=== PATIENT | female | born 1960 | race Caucasian/White ===

== ENCOUNTER 2017-04-04 22:35 | Emergency (ER) | payer BC, OTHER ==
[2017-04-04] MEDS ORDERED: Fluconazole 100 MG Tab PO ONE (22:57)
[2017-04-04] MEDS ORDERED: Ciprofloxacin 500 MG Tab PO ONE (22:59)
--- NOTE | 2017-04-04 23:07 | EDM.PDOC ---
ED HPI GENERAL MEDICAL PROBLEM - General Chief Complaint: Genitourinary Problem Stated Complaint: POSS BLADDER INFECTION Time Seen by Provider: 04/04/17 22:35 Source of Information: Reports: Patient, Family History Limitations: Reports: No Limitations - History of Present Illness INITIAL COMMENTS - FREE TEXT/NARRATIVE: 56 years old w f come with her SO to the ed due painful and frequent urinations. No trauma. Pt had similar symptoms in the past. She stated as well, with any ABX treatment she is getting a vaginal yeast infection. No N/V/D or any other acute medical issues. BP 146/76 Puls ox 96% temp 36.4 Pulse 105 Onset Date: 04/02/17 Onset Time: 07:00 Duration: Day(s):, Intermittent Location: Reports: Pelvis Quality: Reports: Burning Severity: Moderate Improves with: Reports: Rest Worsens with: Reports: Movement Context: Reports: Other Associated Symptoms: Reports: Other (pt is getting a vaginal yeast infection whenever she get Abx) - Related Data Allergies Allergy/AdvReac Type Severity Reaction Status Date / Time No Known Allergies Allergy Verified 04/04/17 22:48 Home Meds: Home Meds .Necon 1 50 28-Day 1 tab PO DAILY 04/04/17 [History] Ciprofloxacin HCl [Cipro] 500 mg PO BID #20 tablet 04/04/17 [Rx] PARoxetine HCl [Paroxetine HCl] 1 tab PO DAILY 04/04/17 [History] Phenazopyridine HCl [Pyridium] 100 mg PO TID #9 tablet 04/04/17 [Rx] Social & Family History - Tobacco Use Smoking Status *Q: Never Smoker ED ROS GENERAL - Review of Systems Review Of Systems: See Below Constitutional: Reports: No Symptoms HEENT: Reports: No Symptoms Respiratory: Reports: No Symptoms Cardiovascular: Reports: No Symptoms Endocrine: Reports: No Symptoms GI/Abdominal: Reports: No Symptoms : Reports: Dysuria Musculoskeletal: Reports: No Symptoms Skin: Reports: No Symptoms Neurological: Reports: No Symptoms Psychiatric: Reports: No Symptoms Hematologic/Lymphatic: Reports: No Symptoms Immunologic: Reports: No Symptoms ED EXAM, RENAL/ - Physical Exam Exam: See Below Exam Limited By: Uncooperative General Appearance: Alert, WD/WN, Mild Distress Eye Exam: Bilateral Eye: Normal Inspection Ears: Normal External Exam Nose: Normal Inspection Throat/Mouth: Normal Inspection, Normal Lips Head: Atraumatic, Normocephalic Neck: Normal Inspection, Supple, Non-Tender Respiratory/Chest: No Respiratory Distress Cardiovascular: Normal Peripheral Pulses, Regular Rate, Rhythm, No Edema, No Gallop GI/Abdominal: Normal Bowel Sounds, Tender (suprapubic) (Female) Exam: Deferred Rectal (Female) Exam: Deferred Back Exam: Normal Inspection, Full Range of Motion Extremities: Normal Inspection, Normal Range of Motion, Non-Tender, No Pedal Edema Neurological: Alert, Oriented, CN II-XII Intact, Normal Cognition, Normal Gait, No Motor/Sensory Deficits Psychiatric: Normal Affect, Normal Mood Skin Exam: Warm, Dry, Intact, Normal Color Lymphatic: No Adenopathy Course - Vital Signs Text/Narrative:: 56 years old w f come with her SO to the ed due painful and frequent urinations. No trauma. Pt had similar symptoms in the past. She stated as well, with any ABX treatment she is getting a vaginal yeast infection. No N/V/D or any other acute medical issues. BP 146/76 Puls ox 96% temp 36.4 Pulse 105 PE: Suprapubic tenderness, Dysuria Labs: UTI Impression: UTI Tx: Ciprom Diflcan, Pyridum Reexam: Improved Plan: D/C with instructions Last Recorded V/S: Last Vital Signs Temp 36.6 C 04/04/17 22:45 Pulse 105 H 04/04/17 22:45 Resp 14 04/04/17 22:45 BP 146/76 H 04/04/17 22:45 Pulse Ox 96 04/04/17 22:45 - Orders/Labs/Meds Orders: Active Orders 24 hr Category Date Time Status CULTURE URINE [RM] Stat Lab 04/04/17 22:40 Received Labs: Laboratory Tests 04/04/17 Range/Units 22:40 Urine Color Other (YELLOW) Urine Appearance Slightly cloudy (CLEAR) Urine pH 6.0 (5.0-6.5) Ur Specific Helix 1.015 (1.010-1.025) Urine Protein 30 H (NEGATIVE) mg/dL Urine Glucose (UA) Normal (NEGATIVE) mg/dL Urine Ketones Negative (NEGATIVE) mg/dL Urine Occult Blood Large H (NEGATIVE) Urine Nitrite Negative (NEGATIVE) Urine Bilirubin Negative (NEGATIVE) Urine Urobilinogen Normal (NEGATIVE) mg/dL Ur Leukocyte Esterase Large H (NEGATIVE) Urine RBC 50-75 H (0) Urine WBC 40-50 H (0) Ur Squamous Epith Cells Moderate H (NS,R,O) Urine Bacteria Many H (NS) Meds: Medications Discontinued Medications Generic Name Dose Route Start Last Admin Trade Name Van PRN Reason Stop Dose Admin Ciprofloxacin 500 mg 04/04/17 22:59 04/04/17 23:06 Ciprofloxacin Hcl PO 04/04/17 23:00 500 mg ONETIME ONE Administration Fluconazole 100 mg 04/04/17 22:57 04/04/17 23:06 Diflucan PO 04/04/17 22:58 100 mg ONETIME ONE Administration Phenazopyridine HCl 95 mg 04/04/17 23:09 04/04/17 23:18 Urinary Pain Relief PO 04/04/17 23:10 95 mg TIDPC STA Administration Departure - Departure Time of Disposition: 23:03 Disposition: Home, Self-Care 01 Condition: Good Clinical Impression: Vaginal yeast infection UTI (urinary tract infection) Qualifiers: Urinary tract infection type: acute cystitis Hematuria presence: with hematuria Qualified Code(s): N30.01 - Acute cystitis with hematuria - Discharge Information Prescriptions: Ciprofloxacin HCl [Cipro] 500 mg PO BID #20 tablet Phenazopyridine HCl [Pyridium] 100 mg PO TID #9 tablet Referrals: Chad Meehan MD [Primary Care Provider] - Forms: ED Department Discharge Additional Instructions: Please increase water intake, please take the Abx as recommended, please take Pyridium as recommended as well, follow up, come back if your symptoms get worse acutely. - My Orders Last 24 Hours: My Active Orders 04/04/17 22:40 CULTURE URINE [RM] Stat - Assessment/Plan Last 24 Hours: My Active Orders 04/04/17 22:40 CULTURE URINE [RM] Stat
[2017-04-04] MEDS ORDERED: Phenazopyridine 95 MG Tab PO STA (23:09)
== END 2017-04-04 23:25 | disposition home or self-care (01) ==
LOC: FB.ED 22:35
DX: N30.01 Acute cystitis with hematuria (principal); B37.3 Candidiasis of vulva and vagina; Z79.899 Other long term (current) drug therapy
CPT/HCPCS: 81001; 87086; 99283; A9270

== ENCOUNTER 2019-11-15 07:58 | Day surgery (SDC) | payer OTHER ==
[~2019-11-15 07:58] MED LIST: Lactated Ringers 1,000 ML IV SCH
[2019-11-15] MEDS ORDERED: Propofol 200 MG/20 ML SDV IV ONE (07:59)
[2019-11-15] MEDS ORDERED: Sodium Chloride 0.9% 10 ML Syringe FLUSH PRN (08:00)
--- NOTE | 2019-11-15 10:26 | PCM.OPNOTE ---
- General Post-Op/Procedure Note Date of Surgery/Procedure: 11/15/19 Operative Procedure(s): c scope Findings: sigmoid diverticuli Pre Op Diagnosis: screening Post-Op Diagnosis: sigmoid diverticuli Anesthesia Technique: MAC Primary Surgeon: Bryan Virgen Anesthesia Provider: Sheldon García Pathology: none Condition: Good Free Text/Narrative:: see dictation
--- NOTE | 2019-11-16 08:05 | OR ---
DATE OF OPERATION: 11/15/2019 SURGEON: Bryan Virgen MD PROCEDURE PERFORMED: Colonoscopy. PREOPERATIVE DIAGNOSIS: Need for colon cancer screening. POSTOPERATIVE DIAGNOSIS: Sigmoid diverticulosis. INDICATIONS FOR PROCEDURE: This is a 59-year-old white female who presents for a colonoscopy. She is without complaints. She was offered and accepted same. DESCRIPTION OF OPERATION: After an excellent IV sedation was administered, digital rectal exam was performed. No marked abnormality was noted. Flexible colonoscope was inserted and advanced without difficulty to the patient's cecum. The prep was excellent. The following findings were noted: Ascending colon, unremarkable. Transverse colon, unremarkable. Descending colon, unremarkable. Sigmoid, an occasional diverticula. Rectum and anus, unremarkable. Colon was deflated as the scope was removed. The patient tolerated the procedure well, was taken to recovery room in good condition. Repeat scope in 10 years. /[id number] JACLYN/DOMONIQUE
== END 2019-11-15 11:17 | disposition home or self-care (01) ==
LOC: FB.SDS 07:58
PROVIDERS: ATTEND Surgery
DX: Z12.11 Encounter for screening for malignant neoplasm of colon (principal); K57.30 Diverticulosis of large intestine without perforation or abscess without bleeding; F41.9 Anxiety disorder, unspecified; F32.9 Major depressive disorder, single episode, unspecified; E78.49 Other hyperlipidemia; Z79.899 Other long term (current) drug therapy
CPT/HCPCS: J2704; J7120

== ENCOUNTER 2022-01-01 07:34 | Day surgery (SDC) | payer OTHER ==
[~2022-01-01 07:34] MED LIST changes: +Sodium Chloride 0.9% 10 ML Syringe FLUSH PRN
[2022-01-01] MEDS ORDERED: Propofol 200 MG/20 ML SDV IV ONE (07:35)
== END 2022-01-01 10:33 | disposition home or self-care (01) ==
LOC: FB.SDS 07:34
PROVIDERS: ATTEND Surgery
DX: K57.30 Diverticulosis of large intestine without perforation or abscess without bleeding (principal); K64.1 Second degree hemorrhoids; K64.4 Residual hemorrhoidal skin tags; K42.9 Umbilical hernia without obstruction or gangrene; E78.5 Hyperlipidemia, unspecified; F32.A Depression, unspecified; Z98.890 Other specified postprocedural states; Z79.899 Other long term (current) drug therapy; Z91.048 Other nonmedicinal substance allergy status
CPT/HCPCS: 00811-QZ; J2704; J7120

== ENCOUNTER 2022-09-16 18:24 | Emergency (ER) | payer OTHER ==
[2022-09-16] MEDS ORDERED: Sulfamethoxazole/Trimethoprim 800-160 MG Tab PO ONE ×2 (18:25→20:49)
[2022-09-16] MEDS ORDERED: Ondansetron 4 MG Tab.DIS PO ONE (18:25)
[2022-09-16] MEDS ORDERED: Sodium Chloride 0.9% 10 ML Syringe FLUSH PRN ×2 (18:37→18:40)
[2022-09-16] MEDS ORDERED: Morphine 4 MG/ML VIAL IVPUSH ONE (18:39)
[2022-09-16] MEDS ORDERED: Sodium Chloride 0.9% 1,000 ML IV SCH (18:45)
[2022-09-16 19:15] LABS: ESTIMATED GFR 64 mL/min (>60)
[2022-09-16] MEDS ORDERED: Iopamidol 755 Mg/ML 100 ML Bottle IV ONE (19:49)
== END 2022-09-16 21:05 | disposition home or self-care (01) ==
LOC: FB.ED 18:24
DX: N30.01 Acute cystitis with hematuria (principal); K52.9 Noninfective gastroenteritis and colitis, unspecified; E78.00 Pure hypercholesterolemia, unspecified; E66.9 Obesity, unspecified; Z68.32 Body mass index [BMI] 32.0-32.9, adult; Z91.048 Other nonmedicinal substance allergy status; Z79.899 Other long term (current) drug therapy
CPT/HCPCS: 36415; 74177; 80053; 81001; 82150; 83690; 85025; 99284; A9270; Q0162; Q9967; 99283

== ENCOUNTER 2022-11-09 06:16 | Day surgery (SDC) | payer OTHER ==
[2022-11-09] MEDS ORDERED: fentaNYL 100 MCG/2 ML SDV IV ONE (06:17)
[2022-11-09] MEDS ORDERED: diphenhydrAMINE 50 MG/ML SDV IVPUSH ONE (06:17)
[2022-11-09] MEDS ORDERED: Propofol 200 MG/20 ML SDV IV ONE ×2 (06:17)
[2022-11-09] MEDS ORDERED: Ondansetron 4 MG/2 ML SDV IVPUSH ONE (06:17)
[2022-11-09] MEDS ORDERED: Dexamethasone 4 MG/ML 5 ML MDV IVPUSH ONE (06:17)
[2022-11-09] MEDS ORDERED: Midazolam 1 MG/ML 2 ML SDV IV ONE (06:17)
[2022-11-09] MEDS ORDERED: Ketorolac 30 MG/ML SDV IVPUSH ONE (06:17)
[2022-11-09] MEDS ORDERED: ceFAZolin 2 GM Vial IVPUSH ONE (07:30)
[2022-11-09] MEDS ORDERED: ceFAZolin 2 GM in Sodium Chloride 0.9% 100 ML IV ONE (07:30)
[2022-11-09] MEDS ORDERED: Lidocaine 1% with EPINEPHrine 1:100,000 20 ML MDV INJECT ONE (07:40)
[2022-11-09] MEDS ORDERED: Bupivacaine 0.5% 50 ML MDV INJECT ONE (07:41)
== END 2022-11-09 09:55 | disposition home or self-care (01) ==
LOC: FB.SDS 06:16
PROVIDERS: ATTEND Surgery
DX: K42.0 Umbilical hernia with obstruction, without gangrene (principal); F32.A Depression, unspecified; E78.5 Hyperlipidemia, unspecified; Z98.890 Other specified postprocedural states; Z79.899 Other long term (current) drug therapy
CPT/HCPCS: 00750; 49592; 88302; J0690; J1100; J1200; J1885; J2250; J2405; J2704; J3010; J3490; J7120

== ENCOUNTER 2024-08-29 07:28 | Day surgery (SDC) | payer BC, OTHER ==
[2024-08-29] MEDS ORDERED: fentaNYL 100 MCG/2 ML SDV IV ONE (07:29)
[2024-08-29] MEDS ORDERED: Midazolam 1 MG/ML 2 ML SDV IV ONE (07:29)
[2024-08-29] MEDS ORDERED: Lactated Ringers 1,000 ML IV SCH (07:30)
[2024-08-29] MEDS ORDERED: Sodium Chloride 0.9% 10 ML Syringe FLUSH PRN (07:30)
[2024-08-29] MEDS: acetaZOLAMIDE 500 MG Cap.ER PO ONE (09:50)
== END 2024-08-29 10:10 | disposition home or self-care (01) ==
LOC: FB.SDS 07:28
PROVIDERS: ATTEND Ophthalmology
DX: H25.812 Combined forms of age-related cataract, left eye (principal); H40.1121 Primary open-angle glaucoma, left eye, mild stage; E78.5 Hyperlipidemia, unspecified; Z79.899 Other long term (current) drug therapy; Z91.09 Other allergy status, other than to drugs and biological substances
CPT/HCPCS: 00142; A9270-GY; J2250; J3010; V2632

== ENCOUNTER 2024-09-12 07:54 | Day surgery (SDC) | payer BC ==
[2024-09-12] MEDS ORDERED: fentaNYL 100 MCG/2 ML SDV IV ONE (07:55)
[2024-09-12] MEDS ORDERED: Midazolam 1 MG/ML 2 ML SDV IV ONE (07:55)
[2024-09-12] MEDS ORDERED: Sodium Chloride 0.9% 10 ML Syringe IV ONE (07:55)
[2024-09-12] MEDS ORDERED: Lactated Ringers 1,000 ML IV PRN (08:00)
[2024-09-12] MEDS: Sodium Chloride 0.9% 10 ML Syringe FLUSH PRN (08:22)
[2024-09-12] MEDS: acetaZOLAMIDE 500 MG Cap.ER PO ONE (10:04)
== END 2024-09-12 10:14 | disposition home or self-care (01) ==
LOC: FB.SDS 07:54
PROVIDERS: ATTEND Ophthalmology
DX: H26.9 Unspecified cataract (principal); H40.1112 Primary open-angle glaucoma, right eye, moderate stage; E78.5 Hyperlipidemia, unspecified; Z91.09 Other allergy status, other than to drugs and biological substances; Z79.899 Other long term (current) drug therapy
CPT/HCPCS: 00142; A9270-GY; J2250; J3010; V2632